=== PATIENT | female | born 1975 | race Caucasian/White ===

== ENCOUNTER 2021-06-20 13:21 | Emergency (ER) | payer MEDICAID ==
--- NOTE | 2021-06-20 15:15 | EDM.PDOC ---
ED HPI GENERAL MEDICAL PROBLEM - General Chief Complaint: Lower Extremity Injury/Pain Stated Complaint: LT FOOT INJURY Time Seen by Provider: 06/20/21 15:00 Source of Information: Reports: Patient, Old Records History Limitations: Reports: No Limitations - History of Present Illness INITIAL COMMENTS - FREE TEXT/NARRATIVE: 46 yo female accidentally kicked while barefoot a hard board last night. She has pain since with walking and to the distal/dorsal foot and the 4th and 5th toes of the L foot. Onset: Sudden Onset Date: 06/19/21 Duration: Hour(s):, Constant Location: Reports: Lower Extremity, Left Quality: Reports: Dull (at rest, sharp with weight bearing) Severity: Moderate Improves with: Reports: Rest Worsens with: Reports: Movement (or especially weight bearing) Context: Reports: Trauma Associated Symptoms: Reports: No Other Symptoms Treatments ACQUISITION ANALYST: Reports: Other (see below) (none) - Related Data Allergies Allergy/AdvReac Type Severity Reaction Status Date / Time No Known Allergies Allergy Verified 06/20/21 14:59 Home Meds: Home Meds Albuterol Sulfate [Proair Hfa] 1 - 2 puff IH Q4H PRN 10/06/20 [History] Fluticasone Propionate [Flonase] 1 spray NS DAILY 10/06/20 [History] Cetirizine [ZyrTEC] 10 mg PO DAILY 10/16/20 [History] Aspirin [Halfprin] 81 mg PO DAILY 06/20/21 [History] atorvaSTATin Calcium [Atorvastatin Calcium] 10 mg PO DAILY 06/20/21 [History] metFORMIN HCl [Metformin HCl ER] 1,000 mg PO DAILY 06/20/21 [History] Past Medical History HEENT History: Reports: Impaired Vision Respiratory History: Reports: Sleep Apnea Gastrointestinal History: Reports: GERD Genitourinary History: Reports: UTI, Recurrent SWIFT TENDER History: Reports: Dysfunctional Uterine Bleeding, Musculoskeletal History: Reports: Fracture Endocrine/Metabolic History: Reports: Diabetes, Type II - Infectious Disease History Infectious Disease History: Reports: Chicken Pox, Influenza, Mononucleosis - Past Surgical History Musculoskeletal Surgical History: Reports: Arthroscopic Knee Social & Family History - Tobacco Use Tobacco Use Status *Q: Current Every Day Tobacco User Years of Tobacco use: 30 Packs/Tins Daily: 1 Review of Systems - Review of Systems Review Of Systems: See Below Constitutional: Reports: No Symptoms Musculoskeletal: Reports: Foot Pain (left) Skin: Reports: No Symptoms Neurological: Reports: Numbness (distal/dorsal foot numbness since injury) ED EXAM, GENERAL - Physical Exam Exam: See Below Exam Limited By: No Limitations General Appearance: Alert, WD/WN, No Apparent Distress Extremities: Normal Inspection, No Pedal Edema, Limited Range of Motion (due to pain). No: Normal Range of Motion, Non-Tender, Pedal Edema, Increased Warmth, Redness Neurological: Alert, Oriented, CN II-XII Intact, Normal Cognition, No Motor/Sensory Deficits Psychiatric: Normal Affect, Normal Mood Skin Exam: Warm, Dry, Intact, Normal Color, No Rash Course - Vital Signs Last Recorded V/S: Last Vital Signs Temp 36.6 C 06/20/21 15:05 Pulse 87 06/20/21 15:05 Resp 18 06/20/21 15:05 BP 149/91 H 06/20/21 15:05 Pulse Ox 96 06/20/21 15:05 - Orders/Labs/Meds Orders: Active Orders 24 hr Category Date Time Status Foot Comp Min 3V Lt [CR] Stat Exams 06/20/21 15:10 Taken - Radiology Interpretation Free Text/Narrative:: L foot X-ray-neg Departure - Departure Time of Disposition: 15:38 Disposition: Home, Self-Care 01 Condition: Good Clinical Impression: Contusion Qualifiers: Encounter type: initial encounter Contusion area: foot Laterality: left Qualified Code(s): S90.32XA - Contusion of left foot, initial encounter - Discharge Information *PRESCRIPTION DRUG MONITORING PROGRAM REVIEWED*: Not Applicable *COPY OF PRESCRIPTION DRUG MONITORING REPORT IN PATIENT KRYSTEN: Not Applicable Referrals: Sandra Tamayo PA-C [Primary Care Provider] - Forms: ED Department Discharge Additional Instructions: Take ibuprofen and/or acetaminophen as needed for pain relief. Rest foot as much as possible until healed. Recheck if not better in a week. Sepsis Event Note (ED) - Evaluation Sepsis Screening Result: No Definite Risk - Focused Exam Vital Signs: Vital Signs Temp Pulse Resp BP Pulse Ox 06/20/21 15:05 36.6 C 87 18 149/91 H 96 06/20/21 15:04 36.6 C 87 18 149/91 H 96 - My Orders Last 24 Hours: My Active Orders 06/20/21 15:10 Foot Comp Min 3V Lt [CR] Stat - Assessment/Plan Last 24 Hours: My Active Orders 06/20/21 15:10 Foot Comp Min 3V Lt [CR] Stat
--- NOTE | 2021-06-21 09:37 | CR ---
Foot Comp Min 3V Lt CLINICAL HISTORY: Injury FINDINGS: There is no acute fracture or dislocation within the foot. No destructive changes are present. IMPRESSION: No acute bony process.
== END 2021-06-20 16:26 | disposition home or self-care (01) ==
LOC: JP.ED 13:21
DX: S90.32XA Contusion of left foot, initial encounter (principal); E11.9 Type 2 diabetes mellitus without complications; Z79.82 Long term (current) use of aspirin; Z79.899 Other long term (current) drug therapy; Z72.0 Tobacco use; W22.09XA Striking against other stationary object, initial encounter
CPT/HCPCS: 73630-26-LT; 73630-LT; 99283-25

== ENCOUNTER 2022-02-05 11:42 | Emergency (ER) | payer MEDICAID ==
[2022-02-05] MEDS ORDERED: Fluconazole 150 MG Tab PO ONE (12:49)
== END 2022-02-05 13:00 | disposition home or self-care (01) ==
LOC: JP.ED 11:42
DX: N39.0 Urinary tract infection, site not specified (principal); R31.9 Hematuria, unspecified; B37.3 Candidiasis of vulva and vagina; I10 Essential (primary) hypertension; E78.00 Pure hypercholesterolemia, unspecified; E11.9 Type 2 diabetes mellitus without complications; Z79.82 Long term (current) use of aspirin; Z79.899 Other long term (current) drug therapy; Z79.84 Long term (current) use of oral hypoglycemic drugs
CPT/HCPCS: 81003; 87086; 87088; 87186; 99283; A9270; 99282

== ENCOUNTER 2022-03-10 17:05 | Inpatient (IN) | payer MEDICAID ==
[2022-03-10] MEDS ORDERED: Sodium Chloride 0.9% 10 ML Syringe FLUSH PRN (19:41)
[2022-03-10] MEDS ORDERED: Sodium Chloride 0.9% 75 ML IV SCH (20:15)
[2022-03-10] MEDS ORDERED: Iopamidol 612 MG/ML 100 ML Bottle IV SCH (20:15)
[2022-03-10] MEDS ORDERED: HYDROmorphone 0.5 MG/0.5 ML Syringe IVPUSH ONE (20:40)
[2022-03-10] MEDS ORDERED: Meropenem 1 GM in Sodium Chloride 0.9% 100 ML IV ONE (21:24)
[2022-03-10] MEDS: Nicotine 21 MG/24 Hr Patch TRDERM SCH (21:54)
[2022-03-10] MEDS ORDERED: Ondansetron 4 MG/2 ML SDV IVPUSH PRN (23:55)
[2022-03-10] MEDS ORDERED: diphenhydrAMINE 50 MG/ML SDV IVPUSH PRN (23:55)
[2022-03-11] MEDS: HYDROmorphone 0.5 MG/0.5 ML Syringe IVPUSH PRN ×2 (00:24→04:28)
[2022-03-11] MEDS ORDERED: Acetaminophen 325 MG Tab PO PRN (00:27)
[2022-03-11] MEDS: Dextrose 5%-Lactated Ringers 1,000 ML IV SCH (04:35)
[2022-03-11 05:04] LABS: ESTIMATED GFR 92 mL/min (>60)
[2022-03-11] MEDS ORDERED: Meropenem 1 GM in Sodium Chloride 0.9% 100 ML IV SCH ×2 (07:00→08:00)
[2022-03-11] MEDS ORDERED: HYDROmorphone 0.5 MG/0.5 ML Syringe IVPUSH PRN (07:19)
[2022-03-11] MEDS ORDERED: HYDROmorphone 1 MG/ML Syringe IV PRN (07:22)
[2022-03-11] MEDS ORDERED: Glycopyrrolate 0.2 MG/ML 5 ML MDV ONE (07:46)
[2022-03-11] MEDS ORDERED: Dexamethasone 4 MG/ML SDV ONE (07:46)
[2022-03-11] MEDS ORDERED: Succinylcholine 200 MG/10 ML MDV ONE (07:46)
[2022-03-11] MEDS ORDERED: fentaNYL 250 MCG/5 ML SDV ONE ×2 (07:46→10:02)
[2022-03-11] MEDS ORDERED: Rocuronium 50 MG/5 ML Vial ONE ×2 (07:46→11:20)
[2022-03-11] MEDS ORDERED: Neostigmine Methylsulfate 1 MG/ML 5 ML Syringe ONE (07:46)
[2022-03-11] MEDS ORDERED: Ondansetron 4 MG/2 ML SDV ONE (07:46)
[2022-03-11] MEDS ORDERED: Propofol 200 MG/20 ML SDV ONE (07:46)
[2022-03-11] MEDS ORDERED: Meropenem 500 MG SDV ONE ×2 (07:48→10:38)
[2022-03-11] MEDS ORDERED: Bupivacaine 0.5% 30 ML SDV ONE (07:52)
[2022-03-11] MEDS ORDERED: Lidocaine 1% with EPINEPHrine 1:100,000 50 ML MDV ONE (07:52)
[2022-03-11] MEDS: Nicotine 21 MG/24 Hr Patch TRDERM SCH (08:10)
[2022-03-11] MEDS ORDERED: Ketamine 500 MG/5 ML MDV IV SCH (09:00)
[2022-03-11] MEDS ORDERED: Ketamine 16 MG in Sodium Chloride 0.9% 19.84 ML IV SCH (09:00)
[2022-03-11 09:08] LABS: HEMOGLOBIN A1C 6.7 % (4.5-6.2)
[2022-03-11] MEDS ORDERED: Ketoconazole 2% Crm 30 GM Tube ONE (10:38)
[2022-03-11] MEDS ORDERED: Linezolid 600 MG/300 ML Premix Bag IRR ONE ×2 (10:57→10:58)
[2022-03-11] MEDS ORDERED: Lactated Ringers 1,000 ML ONE (11:01)
[2022-03-11] MEDS ORDERED: Ondansetron 4 MG/2 ML SDV IVPUSH PRN (12:29)
[2022-03-11] MEDS ORDERED: Naloxone 0.4 MG/ML SDV IVPUSH PRN (12:29)
[2022-03-11] MEDS ORDERED: diphenhydrAMINE 50 MG/ML SDV IVPUSH PRN (12:29)
[2022-03-11] MEDS ORDERED: diphenhydrAMINE 25 MG Cap PO PRN (12:29)
[2022-03-11] MEDS: HYDROmorphone/Normal Saline 6 MG/30 ML PCA Vial IV PRN ×2 (12:36→22:33)
[2022-03-11] MEDS ORDERED: Glucose Gel 15 GM in 37.5 GM Tube PO PRN (13:35)
[2022-03-11] MEDS ORDERED: 50% Dextrose in Water 50 ML Syringe IVPUSH PRN (13:35)
[2022-03-11] MEDS ORDERED: Glucagon,Human Recombinant 1 MG Vial IM PRN (13:35)
[2022-03-11] MEDS ORDERED: hydrOXYzine HCL 100 MG/2 ML SDV IM PRN (13:42)
[2022-03-11] MEDS ORDERED: Albuterol/Ipratropium 3.0-0.5 MG/3 ML Neb Soln INH PRN (13:48)
[2022-03-11] MEDS: Acetaminophen 500 MG Tab PO SCH ×2 (14:16→20:31)
[2022-03-11] MEDS ORDERED: Pantoprazole 40 MG Vial IV SCH (15:00)
[2022-03-11] MEDS: Albuterol/Ipratropium 3.0-0.5 MG/3 ML Neb Soln INH SCH ×2 (16:11→20:33)
[2022-03-11] MEDS: Meropenem 500 MG in Sodium Chloride 0.9% 50 ML IV SCH ×2 (16:13→22:15)
[2022-03-11] MEDS: metFORMIN 500 MG Tab PO SCH (17:14)
[2022-03-11] MEDS: Insulin Lispro 100 Unit/ML 3 ML KwikPen SUBCUT PRN (22:19)
[2022-03-12] MEDS: Dextrose 5%-Lactated Ringers 1,000 ML IV SCH (02:21)
[2022-03-12] MEDS: Acetaminophen 500 MG Tab PO SCH ×4 (03:01→21:05)
[2022-03-12] MEDS: Meropenem 500 MG in Sodium Chloride 0.9% 50 ML IV SCH ×4 (04:20→21:10)
[2022-03-12] MEDS: Albuterol/Ipratropium 3.0-0.5 MG/3 ML Neb Soln INH SCH ×4 (07:04→21:10)
[2022-03-12] MEDS: metFORMIN 500 MG Tab PO SCH ×2 (08:09→16:59)
[2022-03-12] MEDS: Bisacodyl 5 MG Tab PO SCH ×2 (08:10→21:06)
[2022-03-12] MEDS: Nicotine 21 MG/24 Hr Patch TRDERM SCH (08:10)
[2022-03-12] MEDS: Docusate Sodium 100 MG Cap PO SCH ×2 (08:10→21:06)
[2022-03-12] MEDS: Aspirin 81 MG Tab.EC PO SCH (08:11)
[2022-03-12] MEDS: Cetirizine 10 MG Tab PO SCH (08:11)
[2022-03-12] MEDS ORDERED: Nicotine 21 MG/24 Hr Patch TRDERM SCH (09:00)
[2022-03-12] MEDS: Lactated Ringers 1,000 ML IV SCH ×2 (10:57→21:08)
[2022-03-12] MEDS: Pantoprazole 40 MG Tab.CR PO SCH (12:40)
[2022-03-12] MEDS: Insulin Lispro 100 Unit/ML 3 ML KwikPen SUBCUT PRN ×3 (12:47→21:19)
[2022-03-12] MEDS: HYDROmorphone/Normal Saline 6 MG/30 ML PCA Vial IV PRN (18:46)
[2022-03-13] MEDS: Acetaminophen 500 MG Tab PO SCH ×4 (02:05→19:23)
[2022-03-13] MEDS: Meropenem 500 MG in Sodium Chloride 0.9% 50 ML IV SCH ×4 (04:09→21:01)
[2022-03-13 05:14] LABS: ESTIMATED GFR 108 mL/min (>60)
[2022-03-13] MEDS ORDERED: Meropenem 500 MG SDV ONE (06:43)
[2022-03-13] MEDS ORDERED: Bupivacaine 0.5% 30 ML SDV ONE (06:43)
[2022-03-13] MEDS ORDERED: Lidocaine 1% with EPINEPHrine 1:100,000 50 ML MDV ONE (06:44)
[2022-03-13] MEDS: Albuterol/Ipratropium 3.0-0.5 MG/3 ML Neb Soln INH SCH ×4 (07:01→21:00)
[2022-03-13] MEDS ORDERED: Propofol 200 MG/20 ML SDV ONE ×3 (07:06→07:56)
[2022-03-13] MEDS ORDERED: fentaNYL 100 MCG/2 ML SDV ONE (07:06)
[2022-03-13] MEDS ORDERED: Midazolam 1 MG/ML 2 ML SDV ONE (07:06)
[2022-03-13] MEDS ORDERED: Ketoconazole 2% Crm 30 GM Tube ONE (07:48)
[2022-03-13] MEDS: Pantoprazole 40 MG Tab.CR PO SCH (08:53)
[2022-03-13] MEDS: Bisacodyl 5 MG Tab PO SCH ×2 (08:53→20:56)
[2022-03-13] MEDS: metFORMIN 500 MG Tab PO SCH ×2 (08:54→16:10)
[2022-03-13] MEDS: Docusate Sodium 100 MG Cap PO SCH ×2 (08:55→20:56)
[2022-03-13] MEDS: Cetirizine 10 MG Tab PO SCH (08:55)
[2022-03-13] MEDS: Nicotine 21 MG/24 Hr Patch TRDERM SCH (08:55)
[2022-03-13] MEDS: Aspirin 81 MG Tab.EC PO SCH (08:55)
[2022-03-13] MEDS ORDERED: Lactated Ringers 1,000 ML IV SCH (10:15)
[2022-03-13] MEDS: Ibuprofen 600 MG Tab PO SCH ×3 (11:08→22:17)
[2022-03-13] MEDS: Fluticasone NASAL Spray 16 GM Bottle NASBOTH SCH (16:09)
[2022-03-13] MEDS: HYDROmorphone 2 MG Tab PO PRN (17:44)
[2022-03-14] MEDS: HYDROmorphone 2 MG Tab PO PRN ×2 (00:39→09:31)
[2022-03-14] MEDS: Acetaminophen 500 MG Tab PO SCH ×2 (03:29→07:29)
[2022-03-14] MEDS: Meropenem 500 MG in Sodium Chloride 0.9% 50 ML IV SCH (03:30)
[2022-03-14] MEDS: Ibuprofen 600 MG Tab PO SCH (05:23)
[2022-03-14] MEDS: Albuterol/Ipratropium 3.0-0.5 MG/3 ML Neb Soln INH SCH (07:22)
[2022-03-14] MEDS: Pantoprazole 40 MG Tab.CR PO SCH (07:30)
[2022-03-14] MEDS: metFORMIN 500 MG Tab PO SCH (07:34)
[2022-03-14] MEDS: Docusate Sodium 100 MG Cap PO SCH (08:43)
[2022-03-14] MEDS: Fluticasone NASAL Spray 16 GM Bottle NASBOTH SCH ×2 (08:43→08:46)
[2022-03-14] MEDS: Aspirin 81 MG Tab.EC PO SCH (08:43)
[2022-03-14] MEDS: Bisacodyl 5 MG Tab PO SCH (08:43)
[2022-03-14] MEDS: Cetirizine 10 MG Tab PO SCH (08:43)
[2022-03-14] MEDS: Nicotine 21 MG/24 Hr Patch TRDERM SCH (08:43)
[2022-03-14] MEDS ORDERED: Amoxicillin/Clavulanate K 875-125 MG Tab PO SCH (09:00)
== END 2022-03-14 10:30 | disposition home or self-care (01) | DRG 330 ==
LOC: JP.ED 17:05 → JP.MS 22:20
PROVIDERS: ADMIT Surgery; ATTEND Surgery
PROC: 0DTN0ZZ Resection of Sigmoid Colon, Open Approach (ICD-10-PCS; principal; 2022-03-11)
PROC: 0DTP0ZZ Resection of Rectum, Open Approach (ICD-10-PCS; 2022-03-11)
PROC: 0D1N0ZP Bypass Sigmoid Colon to Rectum, Open Approach (ICD-10-PCS; 2022-03-11)
PROC: 0D9N0ZZ Drainage of Sigmoid Colon, Open Approach (ICD-10-PCS; 2022-03-11)
PROC: 0WQF0ZZ Repair Abdominal Wall, Open Approach (ICD-10-PCS; 2022-03-11)
PROC: 0WQF0ZZ Repair Abdominal Wall, Open Approach (ICD-10-PCS; 2022-03-13)
DX: K57.20 Diverticulitis of large intestine with perforation and abscess without bleeding (principal); K46.0 Unspecified abdominal hernia with obstruction, without gangrene; E11.9 Type 2 diabetes mellitus without complications; I10 Essential (primary) hypertension; F17.210 Nicotine dependence, cigarettes, uncomplicated; G89.29 Other chronic pain; M54.59 Other low back pain; H54.7 Unspecified visual loss; E78.00 Pure hypercholesterolemia, unspecified; G47.30 Sleep apnea, unspecified; K21.9 Gastro-esophageal reflux disease without esophagitis; N73.9 Female pelvic inflammatory disease, unspecified; N93.8 Other specified abnormal uterine and vaginal bleeding; Z87.440 Personal history of urinary (tract) infections; Z79.82 Long term (current) use of aspirin; Z86.19 Personal history of other infectious and parasitic diseases; Z98.1 Arthrodesis status; Z79.899 Other long term (current) drug therapy; E78.5 Hyperlipidemia, unspecified; Z20.822 Contact with and (suspected) exposure to COVID-19
CPT/HCPCS: 36415; 74177; 80048; 80053; 81001; 82947; 83036; 83735; 84100; 85025; 85027; 87070; 87075; 87205; 88302; 88307; 94640; 96365; 96367; 96375; 99284; 99285-25; A9270-GY; C9113; J0171; J0330; J1100; J1170; J1815; J2020; J2185; J2250; J2405; J2704; J2710; J2795; J3010; J3490; J7120; J7121; J7620; Q9967; U0002

== ENCOUNTER 2022-06-13 07:10 | Day surgery (SDC) | payer MEDICAID ==
[2022-06-13] MEDS ORDERED: Propofol 200 MG/20 ML SDV ONE ×2 (07:20→09:03)
[2022-06-13] MEDS ORDERED: fentaNYL 100 MCG/2 ML SDV ONE (07:20)
[2022-06-13] MEDS ORDERED: Midazolam 1 MG/ML 2 ML SDV ONE (07:20)
[2022-06-13] MEDS ORDERED: Lactated Ringers 1,000 ML IV SCH (08:15)
== END 2022-06-13 10:40 | disposition home or self-care (01) ==
LOC: JP.SDS 07:10
PROVIDERS: ATTEND Student in an Organized Health Care Education/Training Program
DX: D12.4 Benign neoplasm of descending colon (principal); I10 Essential (primary) hypertension; E11.9 Type 2 diabetes mellitus without complications; Z88.8 Allergy status to other drugs, medicaments and biological substances; Z90.49 Acquired absence of other specified parts of digestive tract
CPT/HCPCS: 45385; 81025; J2250; J2704; J3010; J7120

== ENCOUNTER 2022-07-05 07:57 | Observation (INO) | payer MEDICAID ==
[2022-07-05] MEDS ORDERED: Acetaminophen 500 MG Tab PO ONE (08:30)
[2022-07-05] MEDS ORDERED: Lactated Ringers 1,000 ML IV SCH (08:30)
[2022-07-05] MEDS ORDERED: ceFAZolin 2 GM in Sodium Chloride 0.9% 50 ML IV ONE (09:00)
[2022-07-05] MEDS ORDERED: Rocuronium 50 MG/5 ML Vial ONE (09:22)
[2022-07-05] MEDS ORDERED: Dexamethasone 4 MG/ML SDV ONE (09:22)
[2022-07-05] MEDS ORDERED: Succinylcholine 200 MG/10 ML MDV ONE (09:22)
[2022-07-05] MEDS ORDERED: Glycopyrrolate 0.2 MG/ML 5 ML MDV ONE (09:22)
[2022-07-05] MEDS ORDERED: Neostigmine Methylsulfate 1 MG/ML 5 ML Syringe ONE (09:22)
[2022-07-05] MEDS ORDERED: Propofol 200 MG/20 ML SDV ONE (09:22)
[2022-07-05] MEDS ORDERED: Ondansetron 4 MG/2 ML SDV ONE (09:22)
[2022-07-05] MEDS ORDERED: Bupivacaine 0.5% 50 ML MDV ONE (10:56)
[2022-07-05] MEDS ORDERED: Lidocaine 1% with EPINEPHrine 1:100,000 50 ML MDV ONE (10:57)
[2022-07-05] MEDS ORDERED: Bupivacaine 0.5%/EPINEPHrine 1:200,000 50 ML MDV ONE (10:57)
[2022-07-05] MEDS ORDERED: Labetalol 20 MG/4 ML Syringe ONE (11:30)
[2022-07-05] MEDS ORDERED: Lactated Ringers 1,000 ML ONE (12:51)
[2022-07-05] MEDS ORDERED: fentaNYL 50 MCG/ML SDV IVPUSH ONE (13:38)
[2022-07-05] MEDS ORDERED: hydrOXYzine HCL 100 MG/2 ML SDV IM ONE (13:39)
[2022-07-05] MEDS ORDERED: Ondansetron 4 MG/2 ML SDV IVPUSH PRN (14:42)
[2022-07-05] MEDS ORDERED: HYDROmorphone 0.5 MG/0.5 ML Syringe IVPUSH PRN (14:46)
[2022-07-05] MEDS ORDERED: oxyCODONE 5 MG Tab PO PRN (14:46)
[2022-07-05] MEDS: Acetaminophen 500 MG Tab PO SCH (16:29)
[2022-07-05] MEDS: HYDROmorphone 2 MG Tab PO PRN ×2 (17:27→21:34)
[2022-07-05] MEDS ORDERED: 50% Dextrose in Water 50 ML Syringe IVPUSH PRN (18:04)
[2022-07-05] MEDS ORDERED: Glucagon,Human Recombinant 1 MG Vial IM PRN (18:04)
[2022-07-05] MEDS ORDERED: Albuterol 90 MCG/6.7 GM Inhaler INH PRN (18:06)
[2022-07-05] MEDS: Insulin Lispro 100 Unit/ML 3 ML KwikPen SUBCUT SCH (21:03)
[2022-07-05] MEDS ORDERED: Acetaminophen 500 MG Tab PO SCH (22:00)
[2022-07-06] MEDS: Acetaminophen 500 MG Tab PO SCH ×2 (00:30→08:17)
[2022-07-06] MEDS: HYDROmorphone 2 MG Tab PO PRN (07:00)
[2022-07-06] MEDS ORDERED: Pantoprazole 40 MG Tab.CR PO SCH (07:30)
[2022-07-06] MEDS: Insulin Lispro 100 Unit/ML 3 ML KwikPen SUBCUT SCH (07:40)
== END 2022-07-06 11:05 | disposition home or self-care (01) ==
LOC: JP.SDS 07:57 → JP.MS 14:42
PROVIDERS: ADMIT Student in an Organized Health Care Education/Training Program; ATTEND Student in an Organized Health Care Education/Training Program
DX: K43.9 Ventral hernia without obstruction or gangrene (principal); E11.65 Type 2 diabetes mellitus with hyperglycemia; D72.823 Leukemoid reaction; D75.1 Secondary polycythemia; G47.33 Obstructive sleep apnea (adult) (pediatric); Z79.899 Other long term (current) drug therapy; Z98.890 Other specified postprocedural states; Z79.84 Long term (current) use of oral hypoglycemic drugs; Z88.8 Allergy status to other drugs, medicaments and biological substances; Z87.891 Personal history of nicotine dependence; Z20.822 Contact with and (suspected) exposure to COVID-19
CPT/HCPCS: 81025; 82947; 96374; A9270-GY; C1781; G0378; J0330; J0690; J1100; J1170; J1815; J2405; J2704; J2710; J3010; J3410; J3490; J7120

== ENCOUNTER 2024-02-24 10:51 | Emergency (ER) | payer MEDICAID ==
[2024-02-24 11:15] LABS: AMORPHOUS SEDIMENT,URINE MODERATE; APPEARANCE,URINE CLOUDY (CLEAR); BACTERIA,URINE MODERATE; BILIRUBIN,URINE NEGATIVE (NEGATIVE); COLOR,URINE RED (YELLOW); EPITHELIAL CELLS,URINE NOT SEEN; GLUCOSE,URINE NEGATIVE (NEGATIVE); KETONES,URINE NEGATIVE (NEGATIVE); LEUKOCYTE ESTERASE,URINE SMALL (NEGATIVE); MUCUS,URINE NOT SEEN; NITRITE,URINE NEGATIVE (NEGATIVE); OCCULT BLOOD,URINE LARGE (NEGATIVE); PH,URINE 5.5 (5.0-8.0); PROTEIN,URINE 100 mg/dL (NEGATIVE); RBC,URINE 50-75 (0-5); UROBILINOGEN,URINE 0.2 EU/dL (0.2-1.0)
== END 2024-02-24 11:49 | disposition home or self-care (01) ==
LOC: JP.ED 10:51
DX: N39.0 Urinary tract infection, site not specified (principal); I10 Essential (primary) hypertension; E78.00 Pure hypercholesterolemia, unspecified; E11.9 Type 2 diabetes mellitus without complications; E66.9 Obesity, unspecified; Z88.8 Allergy status to other drugs, medicaments and biological substances; Z79.899 Other long term (current) drug therapy; Z79.82 Long term (current) use of aspirin; Z68.35 Body mass index [BMI] 35.0-35.9, adult
CPT/HCPCS: 81001; 99283

== ENCOUNTER 2025-07-01 18:01 | Emergency (ER) | payer MEDICAID ==
[2025-07-01] MEDS: Lidocaine 1% with EPINEPHrine 1:100,000 20 ML MDV INJECT ONE (20:39)
== END 2025-07-01 21:01 | disposition home or self-care (01) ==
LOC: JP.ED 18:01
DX: L02.31 Cutaneous abscess of buttock (principal); I10 Essential (primary) hypertension; E78.00 Pure hypercholesterolemia, unspecified; E11.9 Type 2 diabetes mellitus without complications; M19.90 Unspecified osteoarthritis, unspecified site; E66.9 Obesity, unspecified; Z68.37 Body mass index [BMI] 37.0-37.9, adult; Z88.8 Allergy status to other drugs, medicaments and biological substances; Z79.82 Long term (current) use of aspirin; Z79.84 Long term (current) use of oral hypoglycemic drugs; Z79.899 Other long term (current) drug therapy
CPT/HCPCS: 87070; 87205; J2004; 10060; 87077; 87186; 99283-25